=== PATIENT | female | born 1970 | race African-American/Black ===

== ENCOUNTER 2018-06-19 15:44 | Emergency (ER) | payer MEDICAID ==
[~2018-06-19] VITALS: Ht 157.5 cm; Wt 86.2 kg
[~2018-06-19 15:44] MED LIST: ACET-929; ALPR0.5T7; AMLO10TA12; CARI350T22; ESCI20TA51; HYDR25TA4; PROMETHAZINE-DM SYRUP; TRAM50TA2
[2018-06-19 18:33] VITALS: BP 96/64
[2018-06-19] MEDS ORDERED: MEPERIDINE HCL (50 MG/ML) 1 ML VIAL IM ONE (21:15)
== END 2018-06-19 21:54 | disposition home or self-care (01) ==
LOC: ER 15:51
DX: G56.03 Carpal tunnel syndrome, bilateral upper limbs (principal); F17.210 Nicotine dependence, cigarettes, uncomplicated; I10 Essential (primary) hypertension; Z88.1 Allergy status to other antibiotic agents; Z88.8 Allergy status to other drugs, medicaments and biological substances
CPT/HCPCS: 96372; 99283; J2175